=== PATIENT | male | born 1955 | race Caucasian/White ===

== ENCOUNTER 2017-10-27 18:02 | Observation (INO) | payer SELFPAY ==
[~2017-10-27] VITALS: Ht 182.9 cm; Wt 100.0 kg
[~2017-10-27 18:02] MED LIST: ALPR-138 PO; ASPI325T PO; LORT5TAB PO; LOVA1TAB47 PO; METO25 PO; Z.0.NO CURRENT MEDS
[2017-10-27 18:07] VITALS: BP 138/60; PULSE 88; RESP 16; TEMP 97.9; O2SAT 96
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
[2017-10-27] MEDS ORDERED: ONDANSETRON HCL 4 MG/2 ML VIAL IV PUSH ONE (18:30)
[2017-10-27] MEDS ORDERED: SODIUM CHLORIDE 0.9% FLUSH 10 ML FLUSH IVF PRN (18:30)
[2017-10-27] MEDS ORDERED: SODIUM CHLORID 0.9% 500 ML INJ 500 ML IV ONE (18:30)
[2017-10-27] MEDS ORDERED: MORPHINE SULFATE 4 MG/ML INJ IV PUSH ONE (18:30)
[2017-10-27] MEDS ORDERED: NITROGLYCERIN 2% OINT 1 GM PACKET TOP ONE (18:30)
[2017-10-27 18:35] VITALS: RESP 20; O2SAT 98
--- NOTE | 2017-10-27 18:51 | RADRPT ---
EXAM DATE/TIME: 10/27/2017 18:35 [facility] COMPARISON: No previous studies available for comparison. INDICATIONS : Chest pain today. MEDICAL HISTORY : SVT. SURGICAL HISTORY : Cardiac cath. Coronary stents. ENCOUNTER: Initial ACUITY: 1 day PAIN SCORE: 8/10 LOCATION: Bilateral chest FINDINGS: A single view of the chest demonstrates the lungs to be symmetrically aerated without evidence of mas s, infiltrate or effusion. The cardiomediastinal contours are unremarkable. Osseous structures are intact. CONCLUSION: No evidence of acute cardiopulmonary disease. Gabriel Gudino MD on October 27, 2017 at 18:49 Board Certified Radiologist. This report was verified electronically.
[2017-10-27 18:52] LABS: AUTOMATED NEUTROPHIL # 4.4 TH/MM3 (1.8-7.7); BASOPHIL % 0.6 % (0.0-2.0); EOSINOPHIL # 0.1 TH/MM3 (0-0.4); EOSINOPHIL % 1.7 % (0.0-4.0); HEMATOCRIT 43.9 % (39.0-51.0); HEMOGLOBIN 15.3 GM/DL (13.0-17.0); LYMPH % 33.6 % (9.0-44.0); LYMPHOCYTE # 2.6 TH/MM3 (1.0-4.8); MEAN CELL VOLUME 91.2 FL (80.0-100.0); MEAN CORPUSCULAR HEMOGLOBIN 31.7 PG (27.0-34.0); MEAN CORPUSCULAR HGB CONC 34.8 % (32.0-36.0); MEAN PLATELET VOLUME 8.1 FL (7.0-11.0); MONO % 6.9 % (0.0-8.0); MONOCYTE # 0.5 TH/MM3 (0-0.9); NEUT % 57.2 % (16.0-70.0); PLATELET COUNT 188 TH/MM3 (150-450); RED BLOOD COUNT 4.81 MIL/MM3 (4.50-5.90); WHITE BLOOD COUNT 7.6 TH/MM3 (4.0-11.0)
[2017-10-27 18:57] LABS: PROTHROMBIN TIME - PATIENT 10.4 SEC (9.8-11.6)
[2017-10-27 19:10] VITALS: BP 113/94; PULSE 79; RESP 18; O2SAT 92
[2017-10-27 19:12] LABS: ALBUMIN 3.4 GM/DL (3.4-5.0); ALT (GPT) 30 U/L (12-78); AST (GOT) 24 U/L (15-37); BICARBONATE 25.1 MEQ/L (21.0-32.0); BLOOD UREA NITROGEN 14 MG/DL (7-18); CALCIUM 7.8 MG/DL (8.5-10.1); CHLORIDE 105 MEQ/L (98-107); CREATININE 0.97 MG/DL (0.60-1.30); GLOMERULAR FILTRATION RATE 78 ML/MIN (>89); GLUCOSE,RANDOM 101 MG/DL (74-106); MAGNESIUM 2.3 MG/DL (1.5-2.5); SODIUM (NA) 139 MEQ/L (136-145)
[2017-10-27 19:15] LABS: ALKALINE PHOSPHATASE 79 U/L (45-117); TOTAL BILIRUBIN ADULT 0.2 MG/DL (0.2-1.0); TOTAL PROTEIN 7.3 GM/DL (6.4-8.2); TROPONIN I LESS THAN 0.02 NG/ML (0.02-0.05)
[2017-10-27] MEDS ORDERED: ACETAMINOPHEN 325 MG TAB PO ONE (20:00)
[2017-10-27 22:36] LABS: TROPONIN I LESS THAN 0.02 NG/ML (0.02-0.05)
[2017-10-28] VITALS (7 sets, daily range): BP systolic 121–140; BP diastolic 62–89; PULSE 64–83; RESP 18; TEMP 98–98.5; O2SAT 95–98
[2017-10-28 00:46] LABS: TROPONIN I LESS THAN 0.02 NG/ML (0.02-0.05)
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
[2017-10-28] MEDS ORDERED: ACETAMINOPHEN 500 MG CPLT PO PRN (09:15)
[2017-10-28] MEDS ORDERED: ONDANSETRON HCL 4 MG/2 ML VIAL IV PUSH PRN (09:15)
[2017-10-28] MEDS ORDERED: NITROGLYCERIN 0.4 MG SL 25 TABS/BTL SL PRN (09:15)
[2017-10-28] MEDS ORDERED: REGADENOSON INJ 0.4 MG/5 ML SYR ONE (12:48)
--- NOTE | 2017-10-28 14:26 | RADRPT ---
EXAM DATE/TIME: 10/28/2017 12:43 [facility] COMPARISON: No previous studies available for comparison. INDICATIONS : Substernal chest pain radiating to left arm. Angina. DOSE: 34.7 mCi Tc99m Myoview at stress. 11.0 mCi Tc99m Myoview at rest. 0.4 mg Lexiscan STRESS SYMPTOMS: Chest pressure with shortness of breath. EJECTION FRACTION: 58% MEDICAL HISTORY : None SURGICAL HISTORY : Coronary artery stent. ENCOUNTER: Initial ACUITY: 1 day PAIN SCALE: 5/10 LOCATION: Substernal chest TECHNIQUE: The patient underwent pharmacologic stress with infusion of prescribed dose. Continuous ECG tracing was monitored during stress. Gated SPECT imaging was performed after stress and conventional SPECT i maging was performed at rest. The examination was performed on a SPECT/CT scanner, both attenuation and non-corrected datasets were reviewed. FINDINGS: DISTRIBUTION: The maximum perfused segment at stress is in the anterolateral wall. PERFUSION STUDY: The pattern of perfusion at stress is within normal limits. GATED STUDY: There is intact wall motion and thickening without hypokinetic or dyskinetic segments. CONCLUSION: 1. No scintigraphic findings of infarct or ischemia. 2. Adequate wall motion throughout with estimated ejection fraction of 58% RISK CATEGORY: Low (<1% Annual Mortality Rate) Samir Alvarado MD on October 28, 2017 at 14:23 Board Certified Radiologist. This report was verified electronically.
--- NOTE | 2017-10-28 15:02 | HHI.DCPOC ---
Discharge Care Plan Diagnosis: (1) Atypical chest pain (2) Hx of coronary artery disease (3) Tobacco abuse Goals to Promote Your Health * To prevent worsening of your condition and complications * To maintain your health at the optimal level Directions to Meet Your Goals Take your medications as prescribed Follow your dietary instruction Follow activity as directed Keep your appointments as scheduled Take your immunizations and boosters as scheduled If your symptoms worsen call your PCP, if no PCP go to Urgent Care Center or Emergency Room Smoking is Dangerous to Your Health. Avoid second hand smoke Call the 24-hour hour crisis hotline for domestic abuse at Prema Rodriguez Oct 28, 2017 15:02
--- NOTE | 2017-10-28 16:17 | EKG ---
Date Performed: 10/28/2017 Time Performed: 01:28:58 PTAGE: 62 years EKG: Sinus rhythm NONSPECIFIC T-WAVE ABNORMALITY BORDERLINE ECG PREVIOUS TRACING : 10/27/2017 18.37 Since previous tracing, no significant change noted DOCTOR: Aamir Cadena Interpretating Date/Time 10/28/2017 16:14:45
--- NOTE | 2017-10-28 16:18 | EKG ---
Date Performed: 10/27/2017 Time Performed: 21:34:52 PTAGE: 62 years EKG: Sinus rhythm NONSPECIFIC T-WAVE ABNORMALITY BORDERLINE ECG PREVIOUS TRACING : 10/27/2017 18.37 Since previous tracing, no significant change noted DOCTOR: Aamir Cadena Interpretating Date/Time 10/28/2017 16:16:23
--- NOTE | 2017-10-28 16:20 | EKG ---
Date Performed: 10/27/2017 Time Performed: 18:37:22 PTAGE: 62 years EKG: Sinus rhythm NONSPECIFIC T-WAVE ABNORMALITY BORDERLINE ECG PREVIOUS TRACING : 02/08/2010 14.29 Since previous tracing, no significant change noted DOCTOR: Aamir Cadena Interpretating Date/Time 10/28/2017 16:17:57
--- NOTE | 2017-10-28 16:26 | TR ---
Date Performed: 10/28/2017 Time Performed: 13:01:29 DOCTOR: Aamir Cadena DRUG LIST: CLINICAL HISTORY: CHEST PAIN REASON FOR TEST: CHEST PAIN REASON FOR ENDING: OBSERVATION: CONCLUSION: Lexiscan stress test was performed under standard four minute protocol. Radionuclid e was injected one minute prior to ending the test. No electrocardiographic abormalities were present to suggest ischemia. Nuclear imaging and interpretation are pending. COMMENTS:
[2017-10-28] MEDS ORDERED: SODIUM CHLORIDE 0.9% FLUSH 10 ML FLUSH IV FLUSH SCH (21:00)
[2017-10-29] MEDS ORDERED: ASPIRIN 325 MG TAB PO SCH (09:00)
== END 2017-10-28 16:40 | disposition home or self-care (01) ==
LOC: NEPE 18:02 → NEDA 20:50 → NEPFCDU 21:53
PROVIDERS: ADMIT Internal Medicine Cardiovascular Disease; ATTEND Internal Medicine Cardiovascular Disease
DX: R07.89 Other chest pain (principal); M79.605 Pain in left leg; R51 Headache; I25.10 Atherosclerotic heart disease of native coronary artery without angina pectoris; F17.210 Nicotine dependence, cigarettes, uncomplicated; Z95.5 Presence of coronary angioplasty implant and graft; Z91.14 Patient's other noncompliance with medication regimen; Z82.49 Family history of ischemic heart disease and other diseases of the circulatory system
CPT/HCPCS: 71045; 78452; 80053; 80307; 82550; 82552; 83690; 83735; 84484; 85025; 85610; 85730; 93005; 93017; 96361; 96374; 96375; 99285; A9502; G0378; J2270; J2405; J2785; J7040